=== PATIENT | male | born 1980 | race Caucasian/White ===

== ENCOUNTER 2020-03-22 10:31 | Day surgery (SDC) | payer OTHER, MEDICAID, SELFPAY ==
[2020-03-22] VITALS (9 sets, daily range): BP systolic 95–117; BP diastolic 52–80; PULSE 67–85; RESP 8–17; TEMP 36.2–37.2; O2SAT 97–100; BMI 22.4
--- NOTE | 2020-03-22 | PATH_ITS ---
[facility] Accession Number: [id number] . 01 Material submitted: . body - RIGHT HYDROCELE . 01 Diagnosis: Right Hydrocele, Excision: Consistent with hydrocele. [facility] 03/25/2020 1556 Local . 01 Electronically signed: . Kevin Watson MD, Dermatopathologist NPI- [id number] . 01 Gross description: . The specimen is received in formalin, labeled right hydrocele and consists of a 3.0 x 3.0 x 1.0 cm irregular pink-purple fibromembranous fragment of soft tissue. Lead Project Engineer sections are submitted in cassette A1. ([id number]) /[facility] 03/24/2020 1525 Local . 01 Pathologist provided ICD-10: N43.3 . 01 CPT . 553588 Performed at: [address] [facility] [id number] MD Christiano Mccarthy MD Phone: [phone]
[2020-03-22] MEDS: LACTATED RINGERS 1,000 ML 42 ML IV ×2 (11:45→14:43)
--- NOTE | 2020-03-22 11:49 | SUR.PREOP ---
Spoke with Dr Flores and he states it is ok for pt to go to [facility] back to [place] in a taxi and understands pt is alone/on his own. Dr Flores states he will put in the order for this and states pt will have to wait longer post-op, discussed this with pt before checking pt in and pt verbalizes agreement
--- NOTE | 2020-03-22 12:33 | PM.HP.1 ---
History of Present Illness History of Present Illness Date Patient Seen: 03/22/20 Time Patient Seen: 12:34 Chief complaint: SDC Narrative: The patient is a gentleman with a hydrocele in his right groin possible hernia here for operation to remove the hydrocele and repair any hernia found. After consideration since his visit he has decided he does not want have mesh used. Patient History Surgical History History of surgery on arm Family & Social History Family History Mother Cancer Grandfather Stroke Social History: household members spouse,family Tobacco & Substance use: Smoking Status Never smoker alcohol intake current alcohol intake frequency a few times a month Substance Use Type marijuana Meds Home Medications and Allergies Home Medications Medication Instructions Recorded Confirmed Type No Known Home Medications 11/26/19 03/22/20 History Allergies Allergy/AdvReac Type Severity Reaction Status Date / Time No Known Drug Allergies Allergy Unverified 11/26/19 11:25 Review of Systems Review of Systems ROS: Yes All systems reviewed with the patient and are negative except as otherwise documented Exam Vital Signs (past 8 hours): - 03/22/20 11:08 Temperature 97.1 F L Pulse Rate 85 Respiratory Rate 17 Blood Pressure 117/69 Pulse Oximetry 99 Oxygen Delivery Method Room Air Narrative Exam Narrative: Cooperative no apparent distress. Lungs are clear to auscultation no rales or rhonchi heart regular rate and rhythm no murmur gallop abdomen is scaphoid soft nontender. Patient has a hydrocele in the right groin/scrotum. Patient is alert and oriented x3. Speech rate and content are appropriate. Affect is appropriate. Assessment & Plan Assessment & Plan narrative: Patient is a gentleman here for exploration is right groin and removal of his hydrocele and treatment of any hernia. The patient after consideration does not want any have mesh use. I have discussed the operation including risks of bleeding, infection, injury to nerves which could cause chronic pain or numbness, injury to the vas deferens in injury to the testicle blood supply. He appears to understand. Recurrence discussed. He understands if there is a hernia present low lack of the use of mesh may increase his risk of recurrence. All questions were answered. Because he does not want mesh used an because were dealing with a hydrocele and not a hernia a laparoscopic repair is not indicated.
[2020-03-22] MEDS: CEFAZOLIN 2 GM/100 ML FROZ.PIGGY IV (13:08)
--- NOTE | 2020-03-22 13:25 | SUR.OPER ---
Supine on padded OR bed, head on pillow, arms secured on padded arm boards at <90 degrees abduction, legs uncrossed, safety belt at thigh, tape over blanket over lower legs.
[2020-03-22] MEDS: BUPIVACAINE 0.5% (PF) VIAL 30 ML INJ (13:31)
--- NOTE | 2020-03-22 14:41 | P.OP_ITS ---
Operative Date/Time/Diagnoses Date of procedure: 03/22/20 Time of procedure: 14:41 Pre-op diagnosis: Possible Right inguinal hernia. Right hydrocele Post-op diagnosis: same (Direct hernia. Hydrocele.) Procedure & Clinicians Procedure: Excision of hydrocele and modified Shouldice repair of hernia. Same procedure as scheduled: Yes Indications: Hydrocele that bothers him. May also have a hernia. Surgeon: Anam Flores Click Yes if Unassisted: Yes Anesthesia Type: General Operative Notes Findings: Direct hernia. Hydrocele which was principal excised. Closure Type: primary Specimen(s): other (Hydrocele sac) Prosthetic devices, grafts, tissues, transplants, or devices: None Estimated Blood Loss (mL): 5 Blood products transfused: none Procedure in detail: The patient was placed supine on the operating table underwent general LMA anesthesia. He was prepped and draped in the usual fashion to include his scrotum. Transverse incision was made overlying the internal ring and carried down level the external oblique. The external oblique was opened parallel with its fibers through the external ring. Cord structures were elevated. The patient appeared to have generalized weakness of the floor. Cord itself was quite small and I opened the cremaster proximally could not identify an indirect sac. Using pressure below the hydrocele on the scrotum and pulling on the cord I delivered the area of the hydrocele into the wound. The hydrocele was opened along its length and the lining almost completely removed. I really left a very small area distally as it was densely attached to a collect ion of dilated veins. The edge of the removed sac was cauterized and then was marsupialized with interrupted 3-0 Vicryl. The testicle was pulled down into the bottom of the scrotum straightening out the cord structures. I then opened the floor from the area near the internal ring to the area near the pubic tubercle. I dissected the preperitoneal fat off of under the floor structures. I began at the pubic tubercle with a 2-0 Prolene. Knot was tied at this level and I ran the cut edge of the lateral floor/ileopubic tract to the underside of the medial cut edge of transversalis. This was run to a point reforming a new internal ring that was snug but not so tight as to constrict the cord structures. Does the same suture was then used to run back to the pubic tubercle suturing lateral edge of ileopubic tract in the very edge of the inguinal ligament to the cut edge of the transversalis. This created [id number] kind of repair typical the 1st 2 layers of the shouldice repair. This repair appeared to be adequate. The patient did not want mesh used. The external oblique was closed with a running 3 0 Vicryl after injecting local anesthetic. The subQ was closed with interrupted 3-0 Vicryl and skin was closed with a running 4-0 Vicryl subcuticular stitch and Steri-Strips. Dressing was applied. Drapes removed the testicle was pulled down and the patient was awakened, extubated taken to recovery area in good condition. Complications: none Post-operative Condition: stable Disposition: PACU
[2020-03-22] MEDS: OXYCODONE/ACETAMINOPHEN 5/325 TABLET 1 TAB PO ×2 (15:09→16:01)
--- NOTE | 2020-03-22 15:49 | SUR.PHASEII ---
Pt requested Rx be sent to [facility], did not think they had his insurance information. Went to [facility] to take them copies of his insurance cards, they stated they had his info and Rx would be ready to go in only a few mins. Rx was given to this RN by pharmacy staff. On returning to PACU, counted out 14 pills of percocet independently by myself and Radha Beach RN. Rx given to pt and informed not to take any pills in recovery area, will give pt second dose of percocet as he is still c/o soreness in R groin. plan for pt to take taxi to [facility] around 1630. awaiting call back from cirilo peace.
== END 2020-03-22 16:32 | disposition home or self-care (01) ==
PROVIDERS: PCP Family Medicine; Referring Provider Family Medicine; Visit Provider Specialist
PROC: (CPT 49505; principal; 2020-03-22 12:15)
DX: K40.90 Unilateral inguinal hernia, without obstruction or gangrene, not specified as recurrent (principal); N43.3 Hydrocele, unspecified
CPT/HCPCS: 49505; 55040; 82962; J0690; J1100; J2405; J2704; J3010

== ENCOUNTER → 2020-11-03 10:25 | Outpatient (CLI) | payer OTHER, MEDICAID, SELFPAY ==
[2020-11-03 21:21] LABS: COVID19 - ORCAS (NP or Nasal) Negative (Negative)
== END ==
PROVIDERS: PCP Family Medicine; Visit Provider Physician Assistant Medical
DX: Z20.822 Contact with and (suspected) exposure to COVID-19 (principal)
CPT/HCPCS: C9803; U0003

== ENCOUNTER → 2022-05-24 14:52 | Outpatient (CLI) | payer OTHER, MEDICAID, SELFPAY ==
[2022-05-24 19:17] LABS: Alanine Aminotransferase 26 IU/L (<50); Albumin Globulin Ratio 1.6 (1.0-2.8); Alkaline Phosphatase 64 U/L (38-126); Aspartate Aminotransferase 31 IU/L (17-59); BUN Creatinine Ratio 15.7 (6-22); Blood Urea Nitrogen 14 mg/dL (9-20); Calcium 8.4 mg/dL (8.4-10.2); Carbon Dioxide 27 mmol/L (22-32); Chloride 101 mmol/L (98-107); Estimated Glomerular Filt Rate > 60 mL/min (>60); Globulin 2.5 g/dL (1.7-4.1); Glucose 80 mg/dL (70-100); HEMOLYSIS 17 (0-50); Potassium 3.8 mmol/L (3.4-5.1); Sodium 137 mmol/L (137-145); Total Protein 6.5 g/dL (6.3-8.2)
[2022-05-24 19:22] LABS: Add Manual Diff / Slide Review NO; Basophils Absolute Auto 0 /uL (0-100); Basophils Percent Auto 0.9 % (0-2); Eosinophils Absolute Auto 100 /uL (0-450); Eosinophils Percent Auto 2.1 % (2-4); Hematocrit 36.8 % (41-53); Hemoglobin 11.9 g/dL (13.5-17.5); Lymphocytes Absolute Auto 900 /uL (1100-4500); Lymphocytes Percent Auto 20.8 % (25-40); Mean Corpuscular HGB Conc 32.5 % (30-36); Mean Corpuscular Hemoglobin 24.2 PG (26-34); Mean Corpuscular Volume 74.4 fL (80-100); Monocytes Absolute Auto 300 /uL (0-900); Monocytes Percent Auto 6.7 % (3-14); Neutrophils Absolute Auto 2900 /uL (1500-7000); Neutrophils Percent Auto 69.5 % (50-75); Platelet Count 207 X10^3/uL (150-400); Red Blood Cell Count 4.94 X10^6/uL (4.5-5.9); Red Cell Distribution Width 14.9 % (11.6-14.8); White Blood Cell Count 4.2 X10^3/uL (4.5-11.0)
[2022-05-29 01:08] LABS: Hepatitis A Antibody Total Positive (Negative)
[2022-05-29 05:36] LABS: Hepatitis A Antibody IgM Negative (Negative)
== END ==
PROVIDERS: PCP Physician Assistant; Visit Provider Physician Assistant
DX: R19.7 Diarrhea, unspecified (principal)
CPT/HCPCS: 80053; 85025; 86708; 86709

== ENCOUNTER → 2022-05-25 09:41 | Outpatient (CLI) | payer OTHER, MEDICAID, SELFPAY ==
[2022-05-25 21:39] LABS: Adenovirus F 40/41 Not Detected (Not Detect); Astrovirus Not Detected (Not Detect); Campylobacter Not Detected (Not Detect); Clostridium difficile toxin AB Not Detected (Not Detect); Cryptosporidium Not Detected (Not Detect); Cyclospora cayetanensis Not Detected (Not Detect); Entamoeba histolytica Not Detected (Not Detect); Enteroaggregative E.coli Not Detected (Not Detect); Enteropathogenic E.coli Not Detected (Not Detect); Enterotoxigenic E.coli It/st Not Detected (Not Detect); Giardia lamblia Not Detected (Not Detect); Norovirus GI/GII Not Detected (Not Detect); Plesiomonsa shigelloides Not Detected (Not Detect); Rotavirus A Not Detected (Not Detect); Salmonella Not Detected (Not Detect); Shiga-like toxin-prod E.coli Not Detected (Not Detect); Shigella/Enteroinvasive E.coli Not Detected (Not Detect); Vibrio Not Detected (Not Detect); Vibrio cholerae Not Detected (Not Detect); Yersinia enterocolitica Not Detected (Not Detect)
[2022-05-25 21:40] LABS: Sapovirus Detected (Not Detect)
== END ==
PROVIDERS: PCP Physician Assistant; Visit Provider Physician Assistant
DX: R19.7 Diarrhea, unspecified (principal)
CPT/HCPCS: 87507

== ENCOUNTER → 2023-05-17 14:00 | Outpatient (CLI) | payer OTHER, MEDICAID, SELFPAY ==
[2023-05-17 19:37] LABS: Add Manual Diff / Slide Review NO; Basophils Absolute Auto 0 /uL (0-100); Basophils Percent Auto 0.7 % (0-2); Eosinophils Absolute Auto 200 /uL (0-450); Eosinophils Percent Auto 2.6 % (2-4); Hematocrit 38.4 % (41-53); Hemoglobin 12.8 g/dL (13.5-17.5); Lymphocytes Absolute Auto 1100 /uL (1100-4500); Lymphocytes Percent Auto 17.8 % (25-40); Mean Corpuscular HGB Conc 33.2 % (30-36); Mean Corpuscular Hemoglobin 26.3 PG (26-34); Mean Corpuscular Volume 79.2 fL (80-100); Monocytes Absolute Auto 300 /uL (0-900); Monocytes Percent Auto 5.5 % (3-14); Neutrophils Absolute Auto 4500 /uL (1500-7000); Neutrophils Percent Auto 73.4 % (50-75); Platelet Count 214 X10^3/uL (150-400); Red Blood Cell Count 4.85 X10^6/uL (4.5-5.9); White Blood Cell Count 6.2 X10^3/uL (4.5-11.0)
[2023-05-17 19:53] LABS: Erythrocyte Sedimentation Rate 4 MM/HR (0-15)
[2023-05-17 20:25] LABS: Alanine Aminotransferase 17 IU/L (<50); Albumin 4.2 g/dL (3.5-5.0); Albumin Globulin Ratio 1.6 (1.0-2.8); Alkaline Phosphatase 64 U/L (38-126); Aspartate Aminotransferase 29 IU/L (17-59); BUN Creatinine Ratio 16.5 (6-22); Bilirubin Total 1.2 mg/dL (0.2-1.3); Blood Urea Nitrogen 13 mg/dL (9-20); Carbon Dioxide 31 mmol/L (22-32); Chloride 104 mmol/L (98-107); Estimated Glomerular Filt Rate > 60 mL/min (>60); Globulin 2.7 g/dL (1.7-4.1); Glucose 68 mg/dL (70-100); HEMOLYSIS < 15 (0-50); Sodium 139 mmol/L (137-145); Total Protein 6.9 g/dL (6.3-8.2)
[2023-05-17 20:51] LABS: TSH w/ Reflex to FT4 1.36 uIU/mL (0.47-4.68)
== END ==
PROVIDERS: PCP Physician Assistant Medical; Visit Provider Physician Assistant
DX: D64.9 Anemia, unspecified (principal); M25.50 Pain in unspecified joint; Z79.899 Other long term (current) drug therapy
CPT/HCPCS: 80053; 84443; 85025; 85651

== ENCOUNTER → 2023-06-07 14:18 | Outpatient (CLI) | payer OTHER, MEDICAID, SELFPAY ==
--- NOTE | 2023-06-07 14:19 | DI.RAD.S_ITS ---
PROCEDURE: XR HIP W PEL IF DONE LT 2V INDICATIONS: LEFT HIP PAIN TECHNIQUE: AP pelvis with lateral view(s) of the left hip(s). COMPARISON: None. FINDINGS: Bones: No fractures or dislocations. No evidence of avascular necrosis of femoral head. Pelvic ring appears intact. No suspicious bony lesions. Soft tissues: The visualized bowel gas pattern is normal. No suspicious soft tissue calcifications. IMPRESSION: No pelvic or hip fracture. No evidence of avascular necrosis. No gross soft tissue abnormalities. Dictated by: Collin Londono M.D. on 06/07/2023 at 16:24 Approved by: Collin Londono M.D. on 06/07/2023 at 16:24
== END ==
PROVIDERS: PCP Physician Assistant Medical; Referring Provider Anesthesiology; Visit Provider Anesthesiology
DX: M47.26 Other spondylosis with radiculopathy, lumbar region (principal); M54.12 Radiculopathy, cervical region; M25.552 Pain in left hip; M54.2 Cervicalgia; M79.605 Pain in left leg
CPT/HCPCS: 73502; 99214

== ENCOUNTER → 2023-06-20 19:05 | Outpatient (CLI) | payer OTHER, MEDICAID, SELFPAY ==
--- NOTE | 2023-06-20 19:07 | DI.MRI.S_ITS ---
PROCEDURE: MR LUMBAR SPINE WO CON INDICATIONS: Radiculopathy, lumbar region TECHNIQUE: Noncontrast sagittal T1 spin echo and T2 fast echo, sagittal STIR, and T2 fast spin echo through the lumbar spine. In cases with scoliosis, additional coronal T2 fast spin echo may be performed. COMPARISON: None. FINDINGS: Image quality: Excellent. Alignment and Curvature: There is normal bony alignment. Bone Marrow: Marrow is of normal overall signal. No acute vertebral body compression fractures. Spinal Cord: Conus medullaris terminates at the L1 level. Visualized cord demonstrates normal signal and size. Paraspinous Soft Tissues: No paravertebral masses. T12-L1: Mild disc desiccation and height loss. Broad-based disc bulge. No canal stenosis. No foraminal stenosis. L1-L2: Mild disc desiccation and height loss. Broad-based disc bulge. There is a right paracentral 1.0 x 0.4 x 0.6 cm broad-based disc bulge which slightly narrows the right lateral recess. There is moderate right foraminal narrowing. Mild left foraminal stenosis. L2-L3: Moderate disc desiccation and height loss. Broad-based disc bulge. Mild facet ligamentum flavum hypertrophy. No canal stenosis. Mild old bilateral foraminal narrowing. L3-L4: Disc height and signal is preserved. Mild facet ligamentum flavum hypertrophy. No canal stenosis. Mild right foraminal narrowing. No left foraminal stenosis. L4-L5: Disc height and signal is preserved. Mild facet ligamentum flavum hypertrophy. No canal stenosis. Mild right and moderate left foraminal stenosis. L5-S1: Mild disc desiccation and height loss. There is a left paracentral 0.7 x 1.1 x 1.3 cm disc protrusion with resultant severe canal stenosis. There is narrowing of the left lateral recess and this bulge abuts the exiting nerve root. Mild bilateral foraminal stenosis. IMPRESSION: 1. Multilevel mild to moderate disc desiccation and height loss throughout the lumbar spine. 2. Right paracentral broad-based disc bulge at L1-2 with narrowing of the right lateral recess. 3. Left paracentral L5-S1 disc bulge which abuts the exiting nerve root with resultant narrowing of the left lateral recess and severe canal stenosis. Dictated by: Florence Wells M.D. on 06/21/2023 at 9:19 Approved by: Florence Wells M.D. on 06/21/2023 at 9:25
== END ==
LOC: MRI 19:06
PROVIDERS: PCP Physician Assistant Medical; Referring Provider Anesthesiology; Visit Provider Anesthesiology
DX: M51.16 Intervertebral disc disorders with radiculopathy, lumbar region (principal); M51.17 Intervertebral disc disorders with radiculopathy, lumbosacral region; M48.061 Spinal stenosis, lumbar region without neurogenic claudication; M48.07 Spinal stenosis, lumbosacral region
CPT/HCPCS: 72148